=== PATIENT | male | born 1940 | race Native Hawaiian/Other Pacific Islander ===

== ENCOUNTER 2017-05-03 10:27 | Outpatient (CLI) | payer OTHER ==
[~2017-05-03 10:27] MED LIST: LANSOPRAZOLE30 MG PO; METFORMIN ER1000 MG PO
== END 2017-05-03 11:30 | disposition home or self-care (01) ==
LOC: RAD 10:27
DX: R06.09 Other forms of dyspnea (principal)

== ENCOUNTER 2017-06-10 14:17 | Emergency (ER) | payer OTHER ==
[~2017-06-10] VITALS: Ht 185.4 cm; Wt 85.7 kg
[2017-06-10 16:38] LABS: PLATELET COUNT 172 K/uL (142-355)
[2017-06-10 17:42] LABS: POTASSIUM 3.6 mmol/L (3.6-5.2)
[2017-06-10 19:02] VITALS: BP 112/59; TEMP 98.2
== END 2017-06-10 19:05 | disposition home or self-care (01) ==
LOC: ED 14:17
PROVIDERS: Family Medicine
DX: E86.9 Volume depletion, unspecified (principal); I95.89 Other hypotension; S20.212A Contusion of left front wall of thorax, initial encounter; S20.211A Contusion of right front wall of thorax, initial encounter; W18.39XA Other fall on same level, initial encounter; Y92.89 Other specified places as the place of occurrence of the external cause
CPT/HCPCS: 36415; 80053; 85027; 96365; 96375; 99284; J1720; J2270; J3411; J3475; J3490

== ENCOUNTER 2017-07-26 13:30 | Outpatient (CLI) | payer OTHER | END 2017-07-26 13:42 | disposition short-term general hospital (02) | LOC: AMB 13:30 | DX: R53.1 Weakness (principal) | CPT/HCPCS: A0425; A0427 ==

== ENCOUNTER 2017-07-26 13:43 | Emergency (ER) | payer OTHER ==
[~2017-07-26] VITALS: Ht 193 cm; Wt 85.7 kg
[2017-07-26 13:45] VITALS: BP 94/56; TEMP 97.5
[2017-07-26 14:21] LABS: PLATELET COUNT 316 K/uL (142-355)
[2017-07-26 14:31] LABS: POTASSIUM 5.9 mmol/L (3.6-5.2)
== END 2017-07-26 14:25 | disposition home or self-care (01) ==
LOC: ED 13:43
PROVIDERS: Family Medicine
DX: R53.1 Weakness (principal); W01.10XA Fall on same level from slipping, tripping and stumbling with subsequent striking against unspecified object, initial encounter
CPT/HCPCS: 80053; 85027; 99283

== ENCOUNTER 2017-07-29 08:56 | Inpatient (IN) | payer OTHER ==
[~2017-07-29] VITALS: Ht 182.9 cm; Wt 89.0 kg
[2017-07-29 12:05] VITALS: BP 103/48; TEMP 98.3; Ht 182.9 cm; Wt 89.0 kg
[2017-07-29 14:15] LABS: PLATELET COUNT 305 K/uL (142-355)
[2017-07-29 14:24] LABS: POTASSIUM 5.1 mmol/L (3.6-5.2)
[2017-07-29 16:00] VITALS: BP 118/45; TEMP 98.5
[2017-07-29 20:00] VITALS: BP 135/61; TEMP 98.3
[2017-07-30] VITALS: BP 131/65; TEMP 98.1
[2017-07-30] MEDS ORDERED: TAMS0.4C PO (00:36)
[2017-07-30] MEDS ORDERED: VITAMIN B-121000 MC2 PO (00:37)
[2017-07-30] MEDS ORDERED: MAGIMIN80 MG OR (00:38)
[2017-07-30] MEDS ORDERED: KP FOLIC ACID1 MG PO (00:39)
[2017-07-30] MEDS ORDERED: SODIUM BICAR650 MG OR (00:40)
[2017-07-30] MEDS ORDERED: CODEINE/APAP1 TA1 PO (00:43)
[2017-07-30] MEDS ORDERED: CLOP75TA2 PO (00:43)
[2017-07-30] MEDS ORDERED: NEXIUM40 M1 PO (00:45)
[2017-07-30 04:00] VITALS: BP 115/54; TEMP 98.1
[2017-07-30 06:17] LABS: PLATELET COUNT 256 K/uL (142-355)
[2017-07-30 06:21] LABS: POTASSIUM 4.9 mmol/L (3.6-5.2)
[2017-07-30 08:00] VITALS: BP 100/53; TEMP 98.8
[2017-07-30 11:25] LABS: PARTIAL THROMBOPLASTIN TIME 25.2 SECONDS (24.5-33.6)
[2017-07-30 12:00] VITALS: BP 104/63; TEMP 98
[2017-07-30 16:00] VITALS: BP 105/58; TEMP 98.4
[2017-07-30 20:22] VITALS: BP 122/62; TEMP 97.9
[2017-07-31] VITALS: BP 102/54; TEMP 98
[2017-07-31 04:00] VITALS: BP 96/47; TEMP 99
[2017-07-31 07:59] VITALS: BP 112/61; TEMP 98.6
[2017-07-31 09:46] LABS: PLATELET COUNT 246 K/uL (142-355)
[2017-07-31 09:49] LABS: POTASSIUM 5.1 mmol/L (3.6-5.2)
[2017-07-31 12:00] VITALS: BP 97/52; TEMP 98.1
[2017-07-31 16:00] VITALS: BP 127/61; TEMP 98.4
[2017-07-31 19:55] VITALS: BP 121/51; TEMP 97.9
[2017-08-01] VITALS: BP 102/56; TEMP 97.9
[2017-08-01 03:55] VITALS: BP 117/59; TEMP 97.7
[2017-08-01 06:14] LABS: PLATELET COUNT 228 K/uL (142-355)
[2017-08-01 06:39] LABS: POTASSIUM 5.1 mmol/L (3.6-5.2)
[2017-08-01 07:41] VITALS: BP 104/57; TEMP 97.7
[2017-08-01 12:00] VITALS: BP 111/63; TEMP 97.7
[2017-08-01 16:06] VITALS: BP 133/69; TEMP 98.4
[2017-08-01 20:00] VITALS: BP 112/73; TEMP 98.9
[2017-08-02] VITALS (25 sets, daily range): BP systolic 88–132; BP diastolic 48–80; TEMP 97.8–99
[2017-08-02 06:42] LABS: PLATELET COUNT 211 K/uL (142-355)
[2017-08-02 12:55] LABS: PLATELET COUNT 224 K/uL (142-355)
[2017-08-02 13:21] LABS: POTASSIUM 4.9 mmol/L (3.6-5.2); SODIUM 136 mmol/L (136-145)
[2017-08-03] VITALS (12 sets, daily range): BP systolic 111–144; BP diastolic 62–96; TEMP 97.9–100.5
[2017-08-03 00:28] LABS: PLATELET COUNT 222 K/uL (142-355)
[2017-08-03 06:39] LABS: PLATELET COUNT 210 K/uL (142-355)
[2017-08-03 06:53] LABS: POTASSIUM 5.2 mmol/L (3.6-5.2)
[2017-08-04 04:00] VITALS: BP 109/57; TEMP 99.2
[2017-08-04 06:09] LABS: POTASSIUM 5.2 mmol/L (3.6-5.2)
[2017-08-04 06:18] LABS: PLATELET COUNT 222 K/uL (142-355)
[2017-08-04 12:34] VITALS: BP 132/57; TEMP 98
[2017-08-04 20:00] VITALS: BP 136/69; TEMP 97.7
[2017-08-05] VITALS: BP 108/60; TEMP 97.8
[2017-08-05 04:00] VITALS: BP 116/61; TEMP 97.7
[2017-08-05 05:31] LABS: PLATELET COUNT 215 K/uL (142-355)
[2017-08-05 05:44] LABS: POTASSIUM 4.7 mmol/L (3.6-5.2)
[2017-08-05 07:49] VITALS: BP 140/68; TEMP 98.6
[2017-08-05 14:08] VITALS: BP 131/72
[2017-08-05 16:00] VITALS: BP 137/71; TEMP 98.8
[2017-08-05 20:00] VITALS: BP 106/70; TEMP 98.4
[2017-08-06] VITALS: BP 128/73; TEMP 98.7
[2017-08-06 04:00] VITALS: BP 94/53; TEMP 98.5
[2017-08-06 06:03] LABS: PLATELET COUNT 212 K/uL (142-355)
[2017-08-06 06:12] LABS: POTASSIUM 4.2 mmol/L (3.6-5.2)
[2017-08-06 08:21] VITALS: BP 113/56; TEMP 98.6
[2017-08-06 12:00] VITALS: BP 101/56; TEMP 97.9
[2017-08-06 16:00] VITALS: BP 120/66; TEMP 98.7
[2017-08-06 20:00] VITALS: BP 116/62; TEMP 97.4
[2017-08-07] VITALS: BP 116/59; TEMP 97.8
[2017-08-07 04:00] VITALS: BP 114/57; TEMP 97.6
[2017-08-07 06:19] LABS: POTASSIUM 4.3 mmol/L (3.6-5.2)
[2017-08-07 06:20] LABS: PLATELET COUNT 216 K/uL (142-355)
[2017-08-07 08:00] VITALS: BP 103/59; TEMP 98.3
[2017-08-07 11:47] VITALS: BP 97/55; TEMP 97.9
[2017-08-07 16:00] VITALS: BP 107/56; TEMP 98
[2017-08-07 20:00] VITALS: BP 108/54; TEMP 98.6
[2017-08-08] VITALS: BP 126/63; TEMP 98.2
[2017-08-08 04:00] VITALS: BP 101/58; TEMP 98.8
[2017-08-08 05:50] LABS: POTASSIUM 4.2 mmol/L (3.6-5.2)
[2017-08-08 06:47] LABS: PLATELET COUNT 201 K/uL (142-355)
[2017-08-08 08:00] VITALS: BP 111/59; TEMP 98
[2017-08-08 12:00] VITALS: BP 117/75; TEMP 98
[2017-08-08 16:00] VITALS: BP 132/62; TEMP 98.3
[2017-08-08 20:00] VITALS: BP 105/60; TEMP 97.9
[2017-08-09] VITALS: BP 102/53; TEMP 98.6
[2017-08-09 04:00] VITALS: BP 98/52; TEMP 98.7
[2017-08-09 08:04] VITALS: BP 96/57; TEMP 99.1
[2017-08-09 08:14] LABS: PLATELET COUNT 215 K/uL (142-355)
[2017-08-09] MEDS ORDERED: NEURONTIN 100M100 MG OR (11:01)
[2017-08-09 12:01] VITALS: BP 119/62; TEMP 98
== END 2017-08-09 14:43 | disposition home or self-care (01) | DRG 699 ==
LOC: MED/SURG 08:56 → ICU 08-02 11:45 → MED/SURG 08-03 11:30
PROVIDERS: Specialist; ADMIT Emergency Medicine
PROC: 30233N1 Transfusion of Nonautologous Red Blood Cells into Peripheral Vein, Percutaneous Approach (ICD-10-PCS; 2017-07-29)
PROC: 30233N1 Transfusion of Nonautologous Red Blood Cells into Peripheral Vein, Percutaneous Approach (ICD-10-PCS; principal; 2017-08-02)
DX: T83.518A Infection and inflammatory reaction due to other urinary catheter, initial encounter (principal); N39.0 Urinary tract infection, site not specified; G40.89 Other seizures; B96.20 Unspecified Escherichia coli [E. coli] as the cause of diseases classified elsewhere; D64.89 Other specified anemias; E11.42 Type 2 diabetes mellitus with diabetic polyneuropathy; R53.1 Weakness; W01.10XA Fall on same level from slipping, tripping and stumbling with subsequent striking against unspecified object, initial encounter
CPT/HCPCS: 36415; 36430; 36600; 80053; 81000; 82272; 82550; 82728; 82805; 82948; 82962; 83550; 83735; 83880; 84484; 84520; 85027; 85610; 85730; 86850; 86900; 86901; 86922; 87040; 87077; 87086; 87088; 87186; 93005; 94760; 96365; 96366; 96372; 96375; 99283; J1650; J1720; J1815; J3475; P9016

== ENCOUNTER 2017-09-13 10:12 | Inpatient (IN) | payer OTHER ==
[2017-09-13] VITALS (19 sets, daily range): BP systolic 74–108; BP diastolic 41–76; TEMP 97.4–98.4; Ht 182.9 cm; Wt 77.1 kg
[~2017-09-13] VITALS: Ht 182.9 cm; Wt 77.1 kg
[~2017-09-13 10:12] MED LIST changes: +CLOP75TA2 PO; +CODEINE/APAP1 TA1 PO; +KP FOLIC ACID1 MG PO; +MAGIMIN80 MG OR; +NEURONTIN 100M100 MG OR; +NEXIUM40 M1 PO; +SODIUM BICAR650 MG OR; +TAMS0.4C PO; +VITAMIN B-121000 MC2 PO
[2017-09-13 11:29] LABS: PLATELET COUNT 244 K/uL (142-355)
[2017-09-13 11:32] LABS: POTASSIUM 5.5 mmol/L (3.6-5.2)
[2017-09-14] VITALS (38 sets, daily range): BP systolic 72–147; BP diastolic 5–77; TEMP 97.9–98.8
[2017-09-14 06:48] LABS: PLATELET COUNT 186 K/uL (142-355)
[2017-09-14 06:58] LABS: POTASSIUM 5.2 mmol/L (3.6-5.2)
[2017-09-15] VITALS (24 sets, daily range): BP systolic 98–145; BP diastolic 52–656; TEMP 97.1–98.1
[2017-09-15 06:06] LABS: PLATELET COUNT 174 K/uL (142-355)
[2017-09-15 06:43] LABS: POTASSIUM 5.2 mmol/L (3.6-5.2)
[2017-09-16] VITALS (23 sets, daily range): BP systolic 106–164; BP diastolic 52–109; TEMP 97.9–99.2
[2017-09-16 07:55] LABS: PLATELET COUNT 206 K/uL (142-355)
[2017-09-16 08:02] LABS: POTASSIUM 5.1 mmol/L (3.6-5.2)
[2017-09-17] VITALS (25 sets, daily range): BP systolic 113–147; BP diastolic 53–107; TEMP 98.1–98.6
[2017-09-17 07:21] LABS: PLATELET COUNT 179 K/uL (142-355)
[2017-09-17 07:46] LABS: POTASSIUM 4.1 mmol/L (3.6-5.2)
[2017-09-18] VITALS (12 sets, daily range): BP systolic 121–152; BP diastolic 65–84; TEMP 97.5–98.7
[2017-09-18 08:13] LABS: PLATELET COUNT 230 K/uL (142-355)
[2017-09-18 08:54] LABS: POTASSIUM 3.8 mmol/L (3.6-5.2)
== END 2017-09-18 12:45 | disposition short-term general hospital (02) | DRG 698 ==
LOC: ED 10:12 → ICU 12:50
PROVIDERS: ADMIT Emergency Medicine
PROC: 30233N1 Transfusion of Nonautologous Red Blood Cells into Peripheral Vein, Percutaneous Approach (ICD-10-PCS; principal; 2017-09-14)
DX: T83.518A Infection and inflammatory reaction due to other urinary catheter, initial encounter (principal); M72.6 Necrotizing fasciitis; A41.02 Sepsis due to Methicillin resistant Staphylococcus aureus; N39.0 Urinary tract infection, site not specified; N18.4 Chronic kidney disease, stage 4 (severe); Y84.6 Urinary catheterization as the cause of abnormal reaction of the patient, or of later complication, without mention of misadventure at the time of the procedure; B96.5 Pseudomonas (aeruginosa) (mallei) (pseudomallei) as the cause of diseases classified elsewhere; E86.0 Dehydration; D64.89 Other specified anemias; E87.5 Hyperkalemia; E11.22 Type 2 diabetes mellitus with diabetic chronic kidney disease; I12.9 Hypertensive chronic kidney disease with stage 1 through stage 4 chronic kidney disease, or unspecified chronic kidney disease; B37.2 Candidiasis of skin and nail; N48.89 Other specified disorders of penis; N48.29 Other inflammatory disorders of penis; B95.62 Methicillin resistant Staphylococcus aureus infection as the cause of diseases classified elsewhere
CPT/HCPCS: 36415; 36430; 80053; 80202; 81000; 82150; 82550; 82947; 82962; 83605; 83690; 83735; 83880; 84484; 85027; 85651; 86850; 86900; 86901; 86922; 87040; 87070; 87077; 87086; 87088; 87185; 87186; 87205; 93005; 94760; 96361; 96365; 96372; 96375; 99285; J1450; J1720; J1815; J1940; J2020; J2060; J2185; J2543; J3370; J3411; J3490; P9016

== ENCOUNTER 2017-09-18 12:40 | Outpatient (CLI) | payer OTHER | END 2017-09-18 12:50 | disposition short-term general hospital (02) | LOC: AMB 12:40 | DX: T83.518A Infection and inflammatory reaction due to other urinary catheter, initial encounter (principal); M72.6 Necrotizing fasciitis; A41.02 Sepsis due to Methicillin resistant Staphylococcus aureus; N39.0 Urinary tract infection, site not specified; N18.4 Chronic kidney disease, stage 4 (severe); Y84.6 Urinary catheterization as the cause of abnormal reaction of the patient, or of later complication, without mention of misadventure at the time of the procedure; B96.5 Pseudomonas (aeruginosa) (mallei) (pseudomallei) as the cause of diseases classified elsewhere; E86.0 Dehydration; D64.89 Other specified anemias; E87.5 Hyperkalemia; E11.22 Type 2 diabetes mellitus with diabetic chronic kidney disease; I12.9 Hypertensive chronic kidney disease with stage 1 through stage 4 chronic kidney disease, or unspecified chronic kidney disease; B37.2 Candidiasis of skin and nail; N48.89 Other specified disorders of penis; N48.29 Other inflammatory disorders of penis; B95.62 Methicillin resistant Staphylococcus aureus infection as the cause of diseases classified elsewhere | CPT/HCPCS: A0425; A0427 ==